=== PATIENT | male | born 1935 | race Caucasian/White ===

== ENCOUNTER 2024-09-03 06:56 | Emergency (ER) | payer MEDICARE, BC ==
[~2024-09-03] VITALS: Ht 182.9 cm; Wt 78.0 kg
[2024-09-03 06:59] VITALS: O2SAT 96
[2024-09-03] MEDS ORDERED: LIDOCAINE HCL/PF 1% 10 MG/ML 5ML VIAL INFIL ONE (07:15)
[2024-09-03 07:41] LABS: BASOPHILS % 0.4 % (0.0-2.0); EOSINOPHILS % 1.0 % (0.0-5.0); HEMATOCRIT. 40.0 % (42.0-52.0); HEMOGLOBIN. 13.2 g/dL (14.0-18.0); LYMPHOCYTES % 18.1 % (20.0-50.0); MEAN PLATELET VOLUME 8.7 fl (7.4-10.4); MONOCYTES % 8.2 % (2.0-8.0); NEUTROPHILS % 72.3 % (40.0-76.0); PLATELET 178 x1000/uL (130-400); RED BLOOD CELL COUNT 4.11 mill/uL (4.7-6.1); RED CELL DISTRIBUTION WIDTH 14.3 % (11.6-14.6)
[2024-09-03 08:12] LABS: CREATININE 1.1 mg/dL (0.6-1.3)
[2024-09-03 08:13] LABS: UREA NITROGEN BLOOD 26 mg/dL (9-23)
[2024-09-03 08:30] LABS: TROPONIN I HIGH SENSITIVITY 127 ng/L (3.0-53)
[2024-09-03] MEDS ORDERED: LIDOCAINE HCL/PF 1% 10 MG/ML 5ML VIAL INFIL SCH (09:01)
[2024-09-03] MEDS: TRANEXAMIC ACID 1,000MG/10ML IV ONE (09:11)
[2024-09-03] MEDS: LIDOCAINE HCL/EPINEPHRINE 1%-EPI 1:100,000 20ML VIAL INFIL ONE (10:02)
[2024-09-03] MEDS: LIDOCAINE/EPINEPHR/TETRACAINE 3ML TP ONE (10:03)
[2024-09-03 10:27] VITALS: BP 162/94; PULSE 115; RESP 20; TEMP 36.9; O2SAT 94
== END 2024-09-03 10:28 | disposition left against medical advice (07) ==
LOC: EDBD 06:56 → ER 06:56
DX: S01.311A Laceration without foreign body of right ear, initial encounter (principal); S01.81XA Laceration without foreign body of other part of head, initial encounter; R42 Dizziness and giddiness; R79.89 Other specified abnormal findings of blood chemistry; I50.9 Heart failure, unspecified; W06.XXXA Fall from bed, initial encounter; Y93.89 Activity, other specified; Y92.89 Other specified places as the place of occurrence of the external cause; Y99.8 Other external cause status
CPT/HCPCS: 99291; 96374; 70450; 80048; 85025; 84484; 36415; 72125; 93005; 99292; J2004; J2003